=== PATIENT | female | born 1950 | race Hispanic/Latino ===

== ENCOUNTER 2016-07-19 13:04 | Emergency (ER) | payer OTHER ==
[2016-07-19 13:50] LABS: Eosinophils % (Auto) 5.2 % (0.0-4.3); Hematocrit 28.3 % (30.3-42.9); Hemoglobin 9.1 gm/dl (10.1-14.3); Mean Corpuscular HGB Conc 32 % (30-34); Mean Corpuscular Hemoglobin 31 pg (28-32); Mean Corpuscular Volume 96 fl (79-97); Platelet Count 276 K/mm3 (140-440); Red Blood Count 2.95 M/mm3 (3.65-5.03); White Blood Count 4.5 K/mm3 (4.5-11.0)
[2016-07-19 13:52] LABS: Red Cell Distribution Width 21.6 % (13.2-15.2)
[2016-07-19 13:57] LABS: INR 0.98 (0.87-1.13)
[2016-07-19 13:58] LABS: Partial Thromboplastin Time 28.1 Sec. (24.2-36.6)
[2016-07-19 14:11] LABS: Alanine Aminotransferase 10 units/L (7-56); Albumin 3.4 g/dL (3.9-5); Albumin/Globulin Ratio 1.1 %; Alkaline Phosphatase 76 units/L (35-129); Anion Gap 18 mmol/L; Blood Urea Nitrogen 8 mg/dL (7-17); Calcium 9.4 mg/dL (8.4-10.2); Carbon Dioxide 25 mmol/L (22-30); Chloride 102.3 mmol/L (98-107); Glucose 124 mg/dL (65-100); Lipase 54 units/L (13-60); Potassium 4.6 mmol/L (3.6-5.0); Sodium 141 mmol/L (137-145); Total Protein 6.4 g/dL (6.3-8.2)
--- NOTE | 2016-07-19 17:07 | Emergency Department Report ---
- General Chief complaint: Recheck/Abnormal Lab/Rx Stated complaint: ABD NORMAL LABS Time Seen by Provider: 07/19/16 15:32 Source: patient, EMS Mode of arrival: Stretcher Limitations: No Limitations - History of Present Illness Initial comments: Reports hx of weakness for weeks. Reports hx of GI bleed. Currently being evaluated inpatient for depression Complaint: generalized weakness -: Gradual, days(s) Location: generalized Severity: mild Severity scale (0 -10): 1 Consistency: intermittent Improves with: none Worsens with: none Context: depression (Denies SI/HI) Associated Symptoms: denies: chest pain, confusion, dark stools, diaphoresis, dysuria, easy bruising, fever/chills, headaches, loss of appetite, nausea/ vomiting, myalgias, rash, shortness of breath, syncope - Related Data Home Medications Medication Instructions Recorded Confirmed Last Taken Acetaminophen [Acetaminophen TAB] 1 tab PO Q4H PRN 07/19/16 07/19/16 Unknown Benzocaine/Menthol [Sore Throat 1 lozenge PO QDAY PRN MDD 8 07/19/16 07/19/16 Unknown Lozenges] Benztropine [Cogentin] 1 mg PO Q4H 07/19/16 07/19/16 Unknown Clorazepate Dipotassium [Tranxene] 2 tab PO QDAY 07/19/16 07/19/16 07/19/16 Divalproex [Andrzej Shepherd] 500 mg PO QAM 07/19/16 07/19/16 07/19/16 Duloxetine HCl [Cymbalta] 1 cap PO QDAY 07/19/16 07/19/16 07/19/16 Eucalyptus/Menthol [Cough Drops] 1 lozenge PO PRN PRN MDD 8 lozenges 07/19/16 Unknown Ferrous Sulfate [Feosol 325 MG tab] 1 tab PO BID 07/19/16 07/19/16 07/19/16 Hydroxyzine HCl [hydrOXYzine] 50 mg PO Q8H PRN MDD 150 mg 07/19/16 07/19/16 Unknown Levothyroxine [Synthroid] 1 tab PO QAM 07/19/16 07/19/16 07/19/16 Loperamide [Imodium] 8 mg PO QDAY PRN 07/19/16 07/19/16 Unknown Loratadine [Claritin] 10 mg PO QDAY 07/19/16 07/19/16 Unknown Magnesium Hydroxide [Milk of 15 ml PO PRN PRN 07/19/16 07/19/16 Unknown Magnesia] Mirtazapine [Remeron] 1 tab PO QHS 07/19/16 07/19/16 07/18/16 Multivitamin Tab [Multiple Vitamin 1 tab PO QAM 07/19/16 07/19/16 07/19/16 TAB (Theragran)] Nitrofurantoin [place]/M-Cryst 1 cap PO BID 07/19/16 07/19/16 07/19/16 [Macrobid CAP] Nut.tx.gluc.intoler,Lac-Fr,Soy 237 ml PO BID 07/19/16 07/19/16 07/19/16 [Glucerna] Omeprazole [Omeprazole] 40 mg PO QAM 07/19/16 07/19/16 07/19/16 Promethazine [Phenergan TAB] 25 mg PO Q4H PRN 07/19/16 07/19/16 Unknown Thiamine [Vitamin B-1] 1 tab PO QDAY 07/19/16 07/19/16 07/19/16 Ziprasidone Mesylate [Geodon] 20 mg IM Q8H PRN 07/19/16 07/19/16 Unknown Ziprasidone [Geodon] 20 mg PO Q8H PRN 07/19/16 07/19/16 Unknown cloNIDine [Catapres] 1 tab PO Q8H PRN 07/19/16 07/19/16 Unknown diphenhydrAMINE [Benadryl CAP] 50 mg IM Q4H 07/19/16 07/19/16 Unknown traMADol [Ultram 50 MG tab] 50 mg PO Q6H 07/19/16 07/19/16 07/18/16 traZODone [Desyrel] 50 mg PO QHS PRN 07/19/16 07/19/16 Unknown Allergies Allergy/AdvReac Type Severity Reaction Status Date / Time Penicillins Allergy Unknown Verified 07/19/16 13:12 polymyxin B Allergy Unknown Verified 07/19/16 13:12 Sulfa (Sulfonamide Allergy Unknown Verified 07/19/16 13:12 Antibiotics) sulfamethoxazole Allergy Shortness Verified 07/19/16 13:12 [From Bactrim] of Breath trimethoprim [From Bactrim] Allergy Shortness Verified 07/19/16 13:12 of Breath ED Review of Systems ROS: Stated complaint: ABD NORMAL LABS Other details as noted in HPI Other: GENERAL: No weight change, fatigue, weakness, fever, chills, or night sweats SKIN: No changes in skin or hair, no itching, no rashes, no jaundice HEAD: No trauma, headache, or visual changes EYES: No blurriness, tearing, itching, acute visual loss, conjunctival discoloration, or scleral icterus EARS: No hearing loss, tinnitus, vertigo, or earache NOSE: No rhinorrhea, stuffiness, sneezing, itching, or epistaxis MOUTH: No bleeding gums, hoarseness, sore throat, or swelling CARDIAC: No new murmur, chest pain, palpitations, dyspnea on exertion, orthopnea , PND, or edema RESPIRATORY: No shortness of breath, wheeze, cough, sputum production, hemoptysis, pneumonia, asthma, bronchitis, or emphysema GI: No change in appetite, nausea, vomiting, dysphagia, change in bowel frequency, diarrhea, constipation, bleeding, hematemesis, melena, hematochezia, or abdominal pain URINARY: No frequency, urgency, polyuria, dysuria, hematuria, or incontinence MUSCULOSKELETAL: No muscle weakness, joint stiffness, decrease in range of motion, redness, swelling, tenderness NEUROLOGIC: No loss of sensation, numbness, tingling, tremors, weakness, paralysis, seizures HEMATOLOGIC: No anemia, easy bruising, bleeding, petechiae, or purpura ENDOCRINE: No hot or cold intolerance, sweating, polyuria, polydipsia or, polyphagia no thyroid problems PSYCHIATRIC: depression, Denies SI/HI ED Past Medical Hx - Past Medical History Previous Medical History?: Yes Hx Hypertension: Yes Hx Psychiatric Treatment: Yes (major depression, dementia, ETOH dependance.) - Surgical History Past Surgical History?: No - Social History Smoking Status: Never Smoker Substance Use Type: Alcohol - Medications Home Medications: Home Medications Medication Instructions Recorded Confirmed Last Taken Type Acetaminophen [Acetaminophen TAB] 1 tab PO Q4H PRN 07/19/16 07/19/16 Unknown History Benzocaine/Menthol [Sore Throat 1 lozenge PO QDAY PRN MDD 8 07/19/16 07/19/16 Unknown History Lozenges] Benztropine [Cogentin] 1 mg PO Q4H 07/19/16 07/19/16 Unknown History Clorazepate Dipotassium [Tranxene] 2 tab PO QDAY 07/19/16 07/19/16 07/19/[address] [Depakote Dr] 500 mg PO QAM 07/19/16 07/19/16 07/19/16 History Duloxetine HCl [Cymbalta] 1 cap PO QDAY 07/19/16 07/19/16 07/19/16 History Eucalyptus/Menthol [Cough Drops] 1 lozenge PO PRN PRN MDD 8 lozenges 07/19/16 Unknown History Ferrous Sulfate [Feosol 325 MG tab] 1 tab PO BID 07/19/16 07/19/16 07/19/16 History Hydroxyzine HCl [hydrOXYzine] 50 mg PO Q8H PRN MDD 150 mg 07/19/16 07/19/16 Unknown History Levothyroxine [Synthroid] 1 tab PO QAM 07/19/16 07/19/16 07/19/16 History Loperamide [Imodium] 8 mg PO QDAY PRN 07/19/16 07/19/16 Unknown History Loratadine [Claritin] 10 mg PO QDAY 07/19/16 07/19/16 Unknown History Magnesium Hydroxide [Milk of 15 ml PO PRN PRN 07/19/16 07/19/16 Unknown History Magnesia] Mirtazapine [Remeron] 1 tab PO QHS 07/19/16 07/19/16 07/18/16 History Multivitamin Tab [Multiple Vitamin 1 tab PO QAM 07/19/16 07/19/16 07/19/16 History TAB (Theragran)] Nitrofurantoin [place]/M-Cryst 1 cap PO BID 07/19/16 07/19/16 07/19/16 History [Macrobid CAP] Nut.tx.gluc.intoler,Lac-Fr,Soy 237 ml PO BID 07/19/16 07/19/16 07/19/16 History [Glucerna] Omeprazole [Omeprazole] 40 mg PO QAM 07/19/16 07/19/16 07/19/16 History Promethazine [Phenergan TAB] 25 mg PO Q4H PRN 07/19/16 07/19/16 Unknown History Thiamine [Vitamin B-1] 1 tab PO QDAY 07/19/16 07/19/16 07/19/16 History Ziprasidone Mesylate [Geodon] 20 mg IM Q8H PRN 07/19/16 07/19/16 Unknown History Ziprasidone [Geodon] 20 mg PO Q8H PRN 07/19/16 07/19/16 Unknown History cloNIDine [Catapres] 1 tab PO Q8H PRN 07/19/16 07/19/16 Unknown History diphenhydrAMINE [Benadryl CAP] 50 mg IM Q4H 07/19/16 07/19/16 Unknown History traMADol [Ultram 50 MG tab] 50 mg PO Q6H 07/19/16 07/19/16 07/18/16 History traZODone [Desyrel] 50 mg PO QHS PRN 07/19/16 07/19/16 Unknown History ED Physical Exam - General Limitations: No Limitations - Other Other exam information: GENERAL: Patient in no acute distress HEAD: Normocephalic, atraumatic EYES: PERRLA, EOM intact, no scleral icterus, no papilledema, no conjunctival hemorrhage, visual wal[place] and acuity wnl, NOSE: No tenderness, discharge, sinus tenderness MOUTH: No erythema, bleeding, exudate HEART: Regular rate and rhythm, no murmur, S1-S2 are auscultated, pulses are symmetric LUNGS: No wheezing, rales, rhonchi, bilateral breath sounds ABDOMEN: Normal bowel sounds, no tenderness, no rebound, no guarding, no masses , no CVA tenderness MUSCULOSKELETAL: Normal joint range of motion, no redness, no swelling, no tenderness NEUROLOGIC: GCS 15, Alert and Oriented x3, Cranial nerves intact, normal sensation, normal strength, normal gait, no cerebellar deficit PSYCHIATRIC: No homicidal or suicidal ideation SKIN: Skin is warm and dry, no wounds, no rashes ED Course Vital Signs 07/19/16 07/19/16 07/19/16 13:20 15:15 17:15 Temperature 98.2 F 98.5 F Pulse Rate 95 H 89 Respiratory 13 17 Rate Blood Pressure 107/76 110/68 [Right] O2 Sat by Pulse 98 100 100 Oximetry ED Medical Decision Making - Lab Data Result diagrams: 07/19/16 13:21 07/19/16 13:21 - EKG Data When compared to previous EKG there are: no significant change - Medical Decision Making Patient comfortable. Updated with results. Plan discharge with outpatient follow-up. Patient agrees with plan and will return if symptoms worsen. Critical care attestation.: If time is entered above; I have spent that time in minutes in the direct care of this critically ill patient, excluding procedure time. ED Disposition Clinical Impression: Weakness Disposition: DISCHARGED TO HOME OR SELFCARE Is pt being admited?: No Condition: Stable Instructions: Weakness (ED) Referrals: EUNICE HATHAWAY MD [Staff Physician] - 3-5 Days Time of Disposition: 17:58
[2016-07-19 19:12] VITALS: BP 132/80
== END 2016-07-19 20:35 | disposition home or self-care (01) ==
LOC: ED 13:04
DX: R53.1 Weakness (principal); I10 Essential (primary) hypertension; F32.9 Major depressive disorder, single episode, unspecified; F03.90 Unspecified dementia, unspecified severity, without behavioral disturbance, psychotic disturbance, mood disturbance, and anxiety; Z88.0 Allergy status to penicillin; Z88.2 Allergy status to sulfonamides; Z88.8 Allergy status to other drugs, medicaments and biological substances
CPT/HCPCS: 36415; 80053; 83690; 85025; 85610; 85730; 86850; 86900; 86901; 93005; 93010

== ENCOUNTER 2016-09-15 01:20 | Emergency (ER) | payer MEDICARE, OTHER ==
[2016-09-15] MEDS ORDERED: ZOFRAN ONE (02:20)
[2016-09-15] MEDS ORDERED: ZOFRAN IV ONE (02:20)
[2016-09-15 02:30] LABS: Hematocrit 39.8 % (30.3-42.9); Hemoglobin 13.2 gm/dl (10.1-14.3); Mean Corpuscular HGB Conc 33 % (30-34); Mean Corpuscular Hemoglobin 32 pg (28-32); Mean Corpuscular Volume 95 fl (79-97); Platelet Count 229 K/mm3 (140-440); Red Blood Count 4.18 M/mm3 (3.65-5.03); White Blood Count 4.5 K/mm3 (4.5-11.0)
[2016-09-15 02:37] LABS: Red Cell Distribution Width 20.4 % (13.2-15.2)
[2016-09-15 02:40] LABS: Alanine Aminotransferase 47 units/L (7-56); Albumin 4.2 g/dL (3.9-5); Albumin/Globulin Ratio 1.4 %; Alkaline Phosphatase 119 units/L (35-129); Anion Gap 17 mmol/L; Blood Urea Nitrogen 9 mg/dL (7-17); Calcium 9.7 mg/dL (8.4-10.2); Carbon Dioxide 25 mmol/L (22-30); Chloride 99.2 mmol/L (98-107); Glucose 103 mg/dL (65-100); Lipase 65 units/L (13-60); Potassium 3.5 mmol/L (3.6-5.0); Sodium 138 mmol/L (137-145); Total Protein 7.1 g/dL (6.3-8.2)
[2016-09-15] MEDS ORDERED: REGLAN IV ONE (02:56)
[2016-09-15] MEDS ORDERED: SUBLIMAZE IV ONE (02:56)
--- NOTE | 2016-09-15 03:03 | Emergency Department Report ---
HPI - General Chief Complaint: Abdominal Pain Time Seen by Provider: 09/15/16 02:45 - HPI HPI: Room 9 The patient is a 65-year-old female presenting with a chief complaint of abdominal pain. The patient states she's had bilateral flank pain for the past 2 days. Patient states this evening at 22:00 she developed pain in the right upper quadrant. Patient admits to nausea and vomiting. Patient denies diarrhea. Patient admits to subjective fever last week. Patient denies dysuria but does admit microscopic hematuria which was discovered at [facility]. The patient was sent to the ED from [facility] for evaluation of her pain. The patient gives her pain a score of 6-7/10 Location: [see above] Duration: 2 days Quality: Pain Severity: 6-7/10 Modifying factors: [see above] Context: [see above] Mode of transportation: [not driving] ED Past Medical Hx - Past Medical History Previous Medical History?: Yes Hx Hypertension: Yes Hx Psychiatric Treatment: Yes (major depression, dementia, ETOH dependance.) - Surgical History Past Surgical History?: No - Family History Family history: no significant - Social History Smoking Status: Never Smoker Substance Use Type: Alcohol - Medications Home Medications: Home Medications Medication Instructions Recorded Confirmed Last Taken Type Acetaminophen [Acetaminophen TAB] 1 tab PO Q4H PRN 07/19/16 07/19/16 Unknown History Benzocaine/Menthol [Sore Throat 1 lozenge PO QDAY PRN MDD 8 07/19/16 07/19/16 Unknown History Lozenges] Benztropine [Cogentin] 1 mg PO Q4H 07/19/16 07/19/16 Unknown History Clorazepate Dipotassium [Tranxene] 2 tab PO QDAY 07/19/16 07/19/16 07/19/[address] [Depakote Dr] 500 mg PO QAM 07/19/16 07/19/16 07/19/16 History Duloxetine HCl [Cymbalta] 1 cap PO QDAY 07/19/16 07/19/16 07/19/16 History Eucalyptus/Menthol [Cough Drops] 1 lozenge PO PRN PRN MDD 8 lozenges 07/19/16 Unknown History Ferrous Sulfate [Feosol 325 MG tab] 1 tab PO BID 07/19/16 07/19/16 07/19/16 History Hydroxyzine HCl [hydrOXYzine] 50 mg PO Q8H PRN MDD 150 mg 07/19/16 07/19/16 Unknown History Levothyroxine [Synthroid] 1 tab PO QAM 07/19/16 07/19/16 07/19/16 History Loperamide [Imodium] 8 mg PO QDAY PRN 07/19/16 07/19/16 Unknown History Loratadine [Claritin] 10 mg PO QDAY 07/19/16 07/19/16 Unknown History Magnesium Hydroxide [Milk of 15 ml PO PRN PRN 07/19/16 07/19/16 Unknown History Magnesia] Mirtazapine [Remeron] 1 tab PO QHS 07/19/16 07/19/16 07/18/16 History Multivitamin Tab [Multiple Vitamin 1 tab PO QAM 07/19/16 07/19/16 07/19/16 History TAB (Theragran)] Nitrofurantoin [place]/M-Cryst 1 cap PO BID 07/19/16 07/19/16 07/19/16 History [Macrobid CAP] Nut.tx.gluc.intoler,Lac-Fr,Soy 237 ml PO BID 07/19/16 07/19/16 07/19/16 History [Glucerna] Omeprazole [Omeprazole] 40 mg PO QAM 07/19/16 07/19/16 07/19/16 History Promethazine [Phenergan TAB] 25 mg PO Q4H PRN 07/19/16 07/19/16 Unknown History Thiamine [Vitamin B-1] 1 tab PO QDAY 07/19/16 07/19/16 07/19/16 History Ziprasidone Mesylate [Geodon] 20 mg IM Q8H PRN 07/19/16 07/19/16 Unknown History Ziprasidone [Geodon] 20 mg PO Q8H PRN 07/19/16 07/19/16 Unknown History cloNIDine [Catapres] 1 tab PO Q8H PRN 07/19/16 07/19/16 Unknown History diphenhydrAMINE [Benadryl CAP] 50 mg IM Q4H 07/19/16 07/19/16 Unknown History traMADol [Ultram 50 MG tab] 50 mg PO Q6H 07/19/16 07/19/16 07/18/16 History traZODone [Desyrel] 50 mg PO QHS PRN 07/19/16 07/19/16 Unknown History Dicyclomine [Bentyl] 20 mg PO QID #20 tablet 09/15/16 Unknown Rx HYDROcodone/APAP 5-325 [[place] 1 - 2 each PO Q6HR PRN #14 tablet 09/15/16 Unknown Rx 5/325] Promethazine [Phenergan TAB] 25 mg PO Q6HR PRN #20 tab 09/15/16 Unknown Rx Promethazine [Phenergan] 25 mg MN Q6HR PRN #5 supp.rect 09/15/16 Unknown Rx ED Review of Systems ROS: Stated complaint: ABD PAIN Other details as noted in HPI Comment: All other systems reviewed and negative Constitutional: fever Eyes: denies: eye pain, eye discharge, vision change ENT: denies: ear pain, throat pain Respiratory: denies: cough, shortness of breath, wheezing Cardiovascular: denies: chest pain, palpitations Endocrine: no symptoms reported Gastrointestinal: abdominal pain, nausea, vomiting Genitourinary: hematuria. denies: urgency, dysuria, discharge Musculoskeletal: back pain. denies: joint swelling, arthralgia Skin: denies: rash, lesions Neurological: denies: headache, weakness, paresthesias Psychiatric: denies: anxiety, depression Hematological/Lymphatic: denies: easy bleeding, easy bruising Physical Exam - Physical Exam Vital Signs: Vital Signs 09/15/16 09/15/16 01:32 02:16 Temperature 97.9 F Pulse Rate 94 H Respiratory 18 18 Rate Blood Pressure 168/103 O2 Sat by Pulse 100 100 Oximetry Physical Exam: GENERAL: The patient is well-developed well-nourished female lying on stretcher appearing to be in mild discomfort. [] HEENT: Normocephalic. Atraumatic. Extraocular motions are intact. Patient has moist mucous membranes. NECK: Supple. Trachea midline CHEST/LUNGS: Clear to auscultation. There is no respiratory distress noted. HEART/CARDIOVASCULAR: Regular. There is no tachycardia. There is no gallop rub or murmur. ABDOMEN: Abdomen is soft, with tenderness to palpation in the right upper quadrant. Patient has normal bowel sounds. There is no abdominal distention. SKIN: There is no rash. There is no edema. There is no diaphoresis. NEURO: The patient is awake, alert, and oriented. The patient is cooperative. The patient has normal speech MUSCULOSKELETAL: There is right CVA tenderness. There is no evidence of acute injury. ED Course Vital Signs 09/15/16 09/15/16 01:32 02:16 Temperature 97.9 F Pulse Rate 94 H Respiratory 18 18 Rate Blood Pressure 168/103 O2 Sat by Pulse 100 100 Oximetry ED Medical Decision Making - Lab Data Result diagrams: 09/15/16 02:05 09/15/16 02:05 Laboratory Tests 09/15/16 09/15/16 09/15/16 02:05 02:05 02:05 WBC 4.5 RBC 4.18 Hgb 13.2 Hct 39.8 MCV 95 MCH 32 MCHC 33 RDW 20.4 H Plt Count 229 [place] % (Auto) Printer Repair Technician Add Manual Diff Complete Total Counted 100 Seg Neuts % (Manual) 38.0 L Band Neutrophils % 0 Lymphocytes % (Manual) 45.0 H Reactive Lymphs % (Man) 0 Monocytes % (Manual) 10.0 H Eosinophils % (Manual) 3.0 Basophils % (Manual) 1.0 Metamyelocytes % 0 Myelocytes % 3.0 Promyelocytes % 0 Blast Cells % 0 Nucleated RBC % Not Reportable Seg Neutrophils # Man 1.7 L Band Neutrophils # 0.0 Lymphocytes # (Manual) 2.0 Abs React Lymphs (Man) 0.0 Monocytes # (Manual) 0.5 Eosinophils # (Manual) 0.1 Basophils # (Manual) 0.0 Metamyelocytes # 0.0 Myelocytes # 0.1 Promyelocytes # 0.0 Blast Cells # 0.0 WBC Morphology Not Reportable Hypersegmented Neuts Not Reportable Hyposegmented Neuts Not Reportable Hypogranular Neuts Not Reportable Smudge Cells Not Reportable Toxic Granulation Not Reportable Toxic Vacuolation Not Reportable Dohle Bodies Not Reportable Pelger-Huet Anomaly Not Reportable Andres Rods Not Reportable Platelet Estimate Consistent w auto Clumped Platelets Not Reportable Plt Clumps, EDTA Not Reportable Large Platelets Not Reportable Giant Platelets Not Reportable Platelet Satelliting Not Reportable Plt Morphology Comment Not Reportable RBC Morphology Not Reportable Dimorphic RBCs Not Reportable Polychromasia Not Reportable Hypochromasia Not Reportable Poikilocytosis Not Reportable Anisocytosis Not Reportable Microcytosis Not Reportable Macrocytosis Not Reportable Spherocytes Not Reportable Pappenheimer Bodies Not Reportable Sickle Cells Not Reportable Target Cells Not Reportable Tear Drop Cells Not Reportable Ovalocytes Not Reportable Helmet Cells Not Reportable [place] Bodies Not Reportable [place] Rings Not Reportable Tere Cells Not Reportable Bite Cells Not Reportable Crenated Cell Not Reportable Elliptocytes Not Reportable Acanthocytes (Spur) Not Reportable Rouleaux Not Reportable Hemoglobin C Crystals Not Reportable Schistocytes Not Reportable Malaria parasites Not Reportable Rusty Bodies Not Reportable Hem Pathologist Commnt No Sodium 138 Potassium 3.5 L Chloride 99.2 Carbon Dioxide 25 Anion Gap 17 BUN 9 Creatinine 0.5 L Estimated GFR > 60 BUN/Creatinine Ratio 18.00 Glucose 103 H Calcium 9.7 Total Bilirubin 0.50 AST 96 H ALT 47 Alkaline Phosphatase 119 Total Protein 7.1 Albumin 4.2 Albumin/Globulin Ratio 1.4 Lipase 65 H Urine Color Yellow Urine Turbidity Clear Urine pH 6.0 Ur Specific [place] 1.014 Urine Protein <15 mg/dl Urine Glucose (UA) Neg Urine Ketones Neg Urine Blood Neg Urine Nitrite Neg Urine Bilirubin Neg Urine Urobilinogen < 2.0 Ur Leukocyte Esterase Sm Urine WBC (Auto) 1.0 Urine RBC (Auto) 3.0 U Epithel Cells (Auto) 2.0 - Radiology Data Radiology results: report reviewed (CT abdomen and pelvis, right upper quadrant ultrasound), image reviewed (CT abdomen pelvis, right upper quadrant ultrasound) Reportable quadrant ultrasound (read by radiologist)-cholelithiasis. Minimal sludge formation is also noted. Further evaluation with HIDA scan may be appropriate. CT abdomen and pelvis (read by radiologist)-cholelithiasis with distended gallbladder lumen. Minimal dilation of the common bile duct and proximal pancreatic duct. No intestinal or urinary tract obstruction. No ileus or enteritis. The appendix is normal. - Differential Diagnosis cholecystitis, symptomatic cholelithiasis, renal colic, pyelonephritis Critical care attestation.: If time is entered above; I have spent that time in minutes in the direct care of this critically ill patient, excluding procedure time. ED Disposition Clinical Impression: Symptomatic cholelithiasis, Abdominal pain, Nausea & vomiting Disposition: [id number]/TX-[id number] PSY HOSP/PSY UNIT Is pt being admited?: No Does the pt Need Aspirin: No Condition: Stable Instructions: Abdominal Pain (ED), Biliary Colic (ED) Additional Instructions: Return to the emergency department immediately should you develop worsening symptoms, fever, inability to tolerate food or liquid or any other concerns. Prescriptions: Dicyclomine [Bentyl] 20 mg PO QID #20 tablet HYDROcodone/APAP 5-325 [[place] 5/325] 1 - 2 each PO Q6HR PRN #14 tablet PRN Reason: Pain Promethazine [Phenergan TAB] 25 mg PO Q6HR PRN #20 tab PRN Reason: Nausea Promethazine [Phenergan] 25 mg MN Q6HR PRN #5 supp.rect PRN Reason: Vomiting Referrals: PRIMARY CAREMD [Primary Care Provider] - 3-5 Days SERGEY FERGUSON MD [Staff Physician] - 3-5 Days (Dr. Ferguson is a surgeon. Please follow up with him for further evaluation of your gallbladder) Time of Disposition: 04:09
[2016-09-15 03:10] VITALS: BP 149/91
[2016-09-15 03:19] LABS: Bilirubin,Urine NEG (Negative); Blood,Urine NEG (Negative); Ketones,Urine NEG (Negative); Leukocyte Esterase,Urine SM (Negative); Nitrite,Urine NEG (Negative); Protein,Urine <15 mg/dL mg/dL (Negative); Urobilinogen,Urine < 2.0 mg/dL (<2.0)
[2016-09-15 03:23] LABS: Blastocytes % (Manual) 0 %
[2016-09-15 03:26] LABS: Diff Status Complete; Platelet Estimate Consistent w Auto
--- NOTE | 2016-09-15 03:57 | Ultrasound Report ---
FINAL REPORT PROCEDURE: US ABDOMEN LIMITED TECHNIQUE: Real-time sonography was performed of the gallbladder with image documentation. CPT 08376 HISTORY: right upper quadrant abdominal pain COMPARISON: No prior studies are available for comparison. FINDINGS: There are are stones within the gallbladder lumen. There is sludge identified. The common bile duct measures 5.9 millimeters. The gallbladder wall thickness is normal at 1 4 millimeters. The portions of the right kidney and liver identified are normal. The pancreas is not well visualized. IMPRESSION: Cholelithiasis. Minimal sludge formation is also noted. Further evaluation with HIDA scan may be appropriate.
--- NOTE | 2016-09-15 04:04 | Cat Scan Report ---
FINAL REPORT PROCEDURE: CT ABDOMEN PELVIS WO CON TECHNIQUE: Computerized axial tomography of the abdomen and pelvis was performed without intravenous contrast. This study is performed without intravascular contrast material and its sensitivity for abdominal and pelvic pathology, including neoplasms, inflammation, abscess, free fluid, thrombosis, arterial dissection and infarction, is reduced compared with a contrast enhanced study. HISTORY: RUQ pain, bilateral flank pain COMPARISON: No prior studies are available for comparison. FINDINGS: Visualized lower thorax: No significant abnormality. Liver: Normal size and attenuation. Spleen: Normal size and attenuation. Gallbladder and biliary system: The gallbladder is distended. There is stones and sludge formation identified in the dependent portion of gallbladder. The common bile duct appears normal. There is some prominence of the pancreatic duct.. Pancreas: On the pancreas size is normal. There is some prominence of the proximal pancreatic duct.. Adrenals: Normal. Kidneys: Normal. GI tract: No obstruction. There is a moderate-sized hiatal hernia. No ileus or enteritis. The cecum, appendix and colon are normal.. Lymph nodes and mesentery: Normal. Vasculature: Normal. Bladder: Normal. Reproductive organs: Normal. Peritoneum: No free fluid. Musculoskeletal structures: No significant abnormality. Other: None. IMPRESSION: Cholelithiasis with distended gallbladder lumen. Minimal dilatation of the common bile duct and proximal pancreatic duct. No intestinal or urinary tract obstruction. No ileus or enteritis. The appendix is normal.
[2016-09-15] MEDS ORDERED: BENTYL IM ONE (04:09)
== END 2016-09-15 04:25 ==
LOC: ED 01:20
DX: R10.9 Unspecified abdominal pain (principal); R11.2 Nausea with vomiting, unspecified; I10 Essential (primary) hypertension
CPT/HCPCS: 36415; 74176; 76705; 80053; 81001; 83690; 85007; 85025; 96372; 96374; 96375; 99284; J0500; J2405; J2765; J3010